=== PATIENT | male | born 1955 | race Hispanic/Latino ===

== ENCOUNTER 2018-02-24 20:23 | Inpatient (IN) | payer OTHER ==
[2018-02-24] MEDS ORDERED: Sodium Chloride 0.9% 1,000 ML IV STA (21:00)
[2018-02-24] MEDS ORDERED: Piperacillin/Tazobact 3.375 GM in Sodium Chloride 0.9% 100 ML IVPB STA (21:01)
[2018-02-24] MEDS ORDERED: Piperacillin/Tazobact 3.375 gm Inj IVPB ONE (21:12)
[2018-02-24] MEDS ORDERED: Vancomycin 1 g Inj ONE (21:13)
--- NOTE | 2018-02-24 21:13 | ED PDOC ---
HPI: Fever Time Seen by Provider: 02/24/18 20:49 Fever Onset Was: 02/22/18 (x2 days) Symptoms Associated With Fever: denies: Vomiting, Cough Additional Comments: Patient is a 62 y/o male who presents to the ED complaining of fever onset x2 days ago associated with chills s/p prostate biopsy (x3 days ago.) Patient is currently on cipro. He denies vomiting, dysuria, or cough. Past Medical History Reviewed: Historical Data, Nursing Documentation, Vital Signs Vital Signs: Last Vital Signs Temp 101.1 F H 02/24/18 20:44 Pulse 98 H 02/24/18 20:44 Resp 18 02/24/18 20:44 BP 132/79 02/24/18 20:44 Pulse Ox 99 02/24/18 20:44 - Medical History PMH: CAD (s/p Stent) - Family History Family History: States: Unknown Family Hx - Allergies Allergies/Adverse Reactions: Allergies Allergy/AdvReac Type Severity Reaction Status Date / Time lisinopril Allergy COUGH Verified 02/24/18 20:44 Review of Systems ROS Statement: Except As Marked, All Systems Reviewed And Found Negative Constitutional: Positive for: Fever, Chills Respiratory: Negative for: Cough Gastrointestinal: Negative for: Vomiting Genitourinary Male: Negative for: Dysuria Physical Exam - Reviewed Nursing Documentation Reviewed: Yes Vital Signs Reviewed: Yes - Physical Exam Appears: Positive for: Well, Non-toxic, No Acute Distress Head Exam: Positive for: ATRAUMATIC, NORMOCEPHALIC Skin: Positive for: Normal Color, Warm, DRY Eye Exam: Positive for: EOMI, Normal appearance, PERRL Cardiovascular/Chest: Positive for: Regular Rate, Rhythm. Negative for: Murmur Respiratory: Positive for: Normal Breath Sounds. Negative for: Respiratory Distress Gastrointestinal/Abdominal: Positive for: Normal Exam, Soft. Negative for: Tenderness Back: Positive for: Normal Inspection. Negative for: L CVA Tenderness, R CVA Tenderness Extremity: Positive for: Normal ROM. Negative for: Pedal Edema, Deformity Neurologic/Psych: Positive for: Alert, Oriented. Negative for: Motor/Sensory Deficits - Laboratory Results Result Diagrams: 02/24/18 21:57 02/24/18 21:57 - ECG O2 Sat by Pulse Oximetry: 99 (RA) Pulse Ox Interpretation: Normal Medical Decision Making Medical Decision Making: Time: 21:00 Initial plan: VBG Shock panel EKG CMP CBC w/ diff CXR IV fluids Vancomycin Zosyn Blood culture Urine Culture UA Scribe Attestation: Documented by Mart Stack acting as a scribe for Maicol Wiley MD Provider Scribe Attestation: All medical record entries made by the Scribe were at my direction and personally dictated by me. I have reviewed the chart and agree that the record accurately reflects my personal performance of the history, physical exam, medical decision making, and the department course for this patient. I have also personally directed, reviewed, and agree with the discharge instructions and disposition. Disposition - Clinical Impression Clinical Impression: Sepsis, Prostatitis - Patient ED Disposition Is Patient to be Admitted: Yes - Disposition Disposition Time: 22:26 Condition: FAIR Forms: SEA (Peruvian) - Pt Status Changed To: Hospital Disposition Of: Inpatient - Admit Certification Admit to Inpatient:: After my assessment, the patient will require hospitalization for at least two midnights. This is because of the severity of symptoms shown, intensity of services needed, and/or the medical risk in this patient being treated as an outpatient. - POA Present On Arrival: None
[2018-02-24 22:00] LABS: BASO % 0.4 % (0.0-2.0); EOS % 0.1 % (0.0-4.0); LYMPH # 0.5 K/uL (1.0-4.3); LYMPH % 5.3 % (20.0-40.0); MEAN CELL VOLUME 90.7 fl (80.0-94.0); MEAN CORPUSCULAR HEMOGLOBIN 30.2 pg (27.0-31.0); MEAN CORPUSCULAR HGB CONC 33.3 g/dL (33.0-37.0); MONO # 0.6 K/uL (0.0-0.8); MONO % 6.4 % (0.0-10.0); NEUT # 8.1 K/uL (1.8-7.0); NEUT % 87.8 % (50.0-75.0); PLATELET COUNT 219 K/uL (130-400); RBC 4.31 Mil/uL (4.40-5.90); RED CELL DISTRIBUTION WIDTH 13.6 % (11.5-14.5); WHITE BLOOD COUNT 9.2 K/uL (4.8-10.8)
[2018-02-24 22:05] LABS: VENOUS BLOOD GAS BASE EXCESS 2.7 mmol/L (0.0-2.0); VENOUS BLOOD GAS PCO2 36 mmHg (40-60); VENOUS BLOOD GAS PO2 32 mm/Hg (30-55); VENOUS BLOOD PH 7.47 (7.32-7.43)
[2018-02-24 22:10] LABS: ALB/GLOB RATIO 1.2 (1.0-2.1); ALBUMIN 3.9 g/dL (3.5-5.0); ALT/SGPT 17 U/L (21-72); AST/SGOT 17 U/L (17-59); BLOOD UREA NITROGEN 15 mg/dl (9-20); CALCIUM 9.1 mg/dL (8.4-10.2); GFR NON-AFRICAN AMERICAN > 60
[2018-02-24 22:48] LABS: BANDS 3 % (0-2); LYMPHOCYTE 7 % (20-50); MONOCYTE 8 % (0-10); NEUTROPHIL 81 % (42-75); REACTIVE LYMPHOCYTES 1 % (0-0); TOTAL CELLS COUNTED 100
[2018-02-24 22:49] LABS: ANISOCYTOSIS SLIGHT; HYPOCHROMIC SLIGHT; PLATELET ESTIMATE NORMAL (NORMAL); TOXIC GRANULATION PRESENT
[2018-02-24 23:02] LABS: URINE AMORPHOUS SEDIMENT RARE /ul (<OCC); URINE BACTERIA MANY (<OCC); URINE BILIRUBIN NEGATIVE (NEGATIVE); URINE BLOOD MODERATE (NEGATIVE); URINE CLARITY CLOUDY (Clear); URINE COLOR YELLOW (YELLOW); URINE GLUCOSE (UA) NEG (Normal); URINE LEUKOCYTE ESTERASE MOD Leu/uL (Negative); URINE PROTEIN 30 mg/dL (NEGATIVE)
[2018-02-25] MEDS ORDERED: DiphenhydrAMINE 12.5 mg/5 ml LIQ UD (5 ml) PO ONE (01:29)
[2018-02-25] MEDS ORDERED: Piperacillin/Tazobact 3.375 GM in Sodium Chloride 0.9% 100 ML IVPB SCH (09:00)
--- NOTE | 2018-02-25 09:35 | RAD ---
Date of service: 02/24/2018 HISTORY: Sepsis COMPARISON: No prior. TECHNIQUE: Chest PA and lateral FINDINGS: LUNGS: No active pulmonary disease. PLEURA: No significant pleural effusion identified. No pneumothorax apparent. CARDIOVASCULAR: No aortic atherosclerotic calcification present. Normal cardiac size. No pulmonary vascular congestion. OSSEOUS STRUCTURES: No significant abnormalities. VISUALIZED UPPER ABDOMEN: Normal. OTHER FINDINGS: None. IMPRESSION: No acute cardiopulmonary disease appreciated.
[2018-02-25] MEDS: Sodium Chloride 0.9% 1,000 ML IV SCH ×2 (09:43→18:20)
--- NOTE | 2018-02-25 12:52 | CARD ---
APPROVED REPORT Date of service: 02/24/2018 EKG Measurement Heart [id number] <Conclusion> Normal sinus rhythm Normal ECG
[2018-02-25] MEDS ORDERED: Alum-Mag Hydrox-Simethicone Susp (30 mL) PO PRN (13:42)
--- NOTE | 2018-02-25 14:13 | CP.PCM.CON ---
History of Present Illness - History of Present Illness History of Present Illness: 62 y/o male who presents to the ED complaining of fever onset x2 days ago associated with chills s/p prostate biopsy (x3 days ago.) Patient is currently on cipro. He denies vomiting, dysuria, or cough. ADMITTED WITH [facility] INFE[facility] PENDING CULTURES - Medical HistoryPast Medical History Reviewed: Historical Data, Nursing Documentation, Vital Signs Vi PMH: CAD (s/p Stent) Review of Systems - Review of Systems All systems: reviewed and no additional remarkable complaints except - Constitutional Constitutional: absent: As Per HPI, Anorexia, Chills, Daytime Sleepiness, Excessive Sweating, Fatigue, Fever, Frequent Falls, Headache, Increased Appet ite, Lethargy, Malaise, Night Sweats, Snoring, Sleep Apnea, Weight Gain, Weight Loss, Weakness, Other - EENT Eyes: absent: As Per HPI, Blind Spots, Blurred Vision, Change in Vision, Decreased Night Vision, Diplopia, Discharge, Dry Eye, Exophthalmos, Floaters, I rritation, Itchy Eyes, Loss of Peripheral Vision, Pain, Photophobia, Requires Corrective Lenses, Sees Flashes, Spots in Vision, Tunnel Vision, Other Visual Disturbances, Loss of Vision, Other Ears: absent: As Per HPI, Decreased Hearing, Ear Discharge, Ear Pain, Tinnitus, Abnormal Hearing, Disequilibrium, Dizziness, Other Nose/Mouth/Throat: absent: As Per HPI, Epistaxis, Nasal Congestion, Nasal Discharge, Nasal Obstruction, Nasal Trauma, Nose Pain, Post Nasal Drip, Sinus Pain, Sinus Pressure, Bleeding Gums, Change in Voice, Dental Pain, Dry Mouth, Dysphagia, Halitosis, Hoarsness, Lip Swelling, Mouth Lesions, Mouth Pain, Odynophagia, Sore Throat, Throat Swelling, Tongue Swelling, Facial Pain, Neck Pain, Neck Mass, Other - Cardiovascular Cardiovascular: absent: As Per HPI, Acrocyanosis, Chest Pain, Chest Pain at Rest, Chest Pain with Activity, Claudication, Diaphoresis, Dyspnea, Dyspnea on Exertion, Edema, Irregular Heart Rhythm, Pain Radiating to Arm/Neck/Jaw, Leg Edema, Leg Ulcers, Lightheadedness, Orthopnea, Palpitations, Paroxysmal Nocturnal Dyspnea, Pedal Edema, Radiating Pain, Rapid Heart Rate, Slow Heart Rate, Syncope, Other - Respiratory Respiratory: absent: As Per HPI, Cough, Dyspnea, Hemoptysis, Dyspnea on Exertion, Wheezing, Snoring, Stridor, Pain on Inspiration, Chest Congestion, Excessive Mucous Production, Change in Mucous Color, Pain with Coughing, Other - Gastrointestinal Gastrointestinal: absent: As Per HPI, Abdominal Pain, Belching, Bloating, Change in Bowel Habits, Change in Stool Character, Coffee Ground Emesis, Constipation, Cramping, Diarrhea, Dyspepsia, Dysphagia, Early Satiety, Excessive Flatus, Fecal Incontinence, Heartburn, Hematemesis, Hematochezia, Loose Stools, Melena, Nausea, Odynophagia, Temesmus, Vomiting, Other - Genitourinary Genitourinary: As Per HPI - Musculoskeletal Musculoskeletal: absent: As Per HPI, Abnormal Gait, Arthralgias, Atrophy, Back Pain, Deformity, Joint Swelling, Limited Range of Motion, Loss of Height, Muscle Cramps, Muscle Weakness, Myalgias, Neck Pain, Numbness, Radiating Pain into Limb, Stiffness, Tingling, Other - Integumentary Integumentary: absent: As Per HPI, Acne, Alopecia, Bleeding Lesions, Change in Hair, Change in Nails, Change in Pigmentation, Changing Lesions, Dry Skin, Erythema, Furuncle, Hirsutism, Lesions, New Lesions, Non-Healing Lesions, Photosensitivity, Pruritus, Rash, Skin Pain, Skin Ulcer, Sores, Striae, Swelling, Unusual Bruising, Wounds, Jaundice, Other - Neurological Neurological: absent: As Per HPI, Abnormal Gait, Abnormal Hearing, Abnormal Movements, Abnormal Speech, Behavioral Changes, Burning Sensations, Confusion, Convulsions, Disequilibrium, Dizziness, Numbness, Focal Weakness, Frequent Falls, Headaches, Lack of Coordination, Loss of Vision, Memory Loss, Paresthesias, Radicular Pain, Restless Legs, Sensory Deficit, Syncope, Tingling, Tremor, Vertigo, Weakness, Other Visual Disturbances, Other - Psychiatric Psychiatric: absent: As Per HPI, Abnormal Sleep Pattern, Anhedonia, Anxiety, Auditory Hallucinations, Behavioral Changes, Change in Appetite, Change in Libido, Confusion, Depression, Difficulty Concentrating, Hallucinations, Homicidal Ideation, Hopelessness, Irritability, Memory Loss, Mood Swings, Panic Attacks, Paranoia, Suicidal Ideation, Visual Hallucinations, Tactile Hallucinations, Other - Endocrine Endocrine: absent: As Per HPI, Change in Body Appearance, Change in Libido, Cold Intolorance, Deepening of Voice, Excessive Sweating, Fatigue, Flushing, Heat Intolorance, Increase in Ring/Shoe/Hat Size, Palpitations, Polydipsia, Polyphagia, Polyuria, Other - Hematologic/Lymphatic Hematologic: absent: As Per HPI, Easy Bleeding, Easy Bruising, Lymphadenopathy, Other Past Patient History - Past Social History Smoking Status: Former Smoker - CARDIAC Hx Cardiac Disorders: Yes Hx Heart Attack: Yes (8 yrs ago stent placement) Hx Hypercholesterolemia: Yes Hx Hypertension: Yes - PULMONARY Hx Respiratory Disorders: No - MUSCULOSKELETAL/RHEUMATOLOGICAL Hx Falls: No - GENITOURINARY/GYNECOLOGICAL Hx Prostate Problems: Yes - PSYCHIATRIC Hx Substance Use: No - SURGICAL HISTORY Hx Surgeries: Yes Hx Herniorrhaphy: Yes - ANESTHESIA Hx Anesthesia: Yes Hx Anesthesia Reactions: No Hx Malignant Hyperthermia: No Meds Home Medications: Home Medication List Medication Instructions Recorded Confirmed Type Cephalexin [Keflex] 1,000 mg PO TID 14 Days #42 capsule 02/27/18 Rx Allergies/Adverse Reactions: Allergies Allergy/AdvReac Type Severity Reaction Status Date / Time lisinopril Allergy COUGH Verified 02/24/18 20:44 - Medications Medications: Current Medications Al Hydrox/Mg Hydrox/Simethicone (Maalox Plus 30 Ml) 30 ml PO Q6 PRN PRN Reason: Indigestion / Heartburn Atorvastatin Calcium (Lipitor) 80 mg PO DAILY [facility] Last Admin: 02/25/18 09:11 Dose: 80 mg Clopidogrel Bisulfate (Plavix) 75 mg PO DAILY [facility] Last Admin: 02/25/18 09:11 Dose: 75 mg Escitalopram Oxalate (Lexapro) 5 mg PO DAILY [facility] Last Admin: 02/25/18 09:10 Dose: 5 mg Sodium Chloride (Sodium Chloride 0.9%) 1,000 mls @ 100 mls/hr IV .Q10H [facility] Stop: 02/26/18 06:45 Last Admin: 02/25/18 09:43 Dose: 100 mls/hr Piperacillin Sod/Tazobactam (Sod 3.375 gm/ Sodium Chloride) 100 mls @ 100 mls/hr IVPB Q12 [facility]; Protocol Last Admin: 02/25/18 10:23 Dose: 100 mls/hr Vancomycin HCl 1 gm/ Sodium (Chloride) 250 mls @ 166.667 mls/hr IVPB DAILY@1999 [facility] Losartan Potassium (Cozaar) 50 mg PO DAILY [facility] Last Admin: 02/25/18 09:09 Dose: 50 mg Tamsulosin HCl (Flomax) 0.4 mg PO DAILY [facility] Last Admin: 02/25/18 09:10 Dose: 0.4 mg Physical Exam - Constitutional Appears: Non-toxic, Chronically Ill - Head Exam Head Exam: NORMOCEPHALIC - Eye Exam Eye Exam: absent: Scleral icterus - ENT Exam ENT Exam: Mucous Membranes Dry, Normal External Ear Exam - Neck Exam Neck exam: Negative for: Lymphadenopathy - Respiratory Exam Respiratory Exam: Decreased Breath Sounds, Clear to Auscultation Bilateral - Cardiovascular Exam Cardiovascular Exam: REGULAR RHYTHM, +S1, +S2 - GI/Abdominal Exam GI & Abdominal Exam: Diminished Bowel Sounds, Soft. absent: Tenderness - Rectal Exam Rectal Exam: Deferred - Exam Exam: NORMAL INSPECTION - Back Exam Back exam: absent: CVA tenderness (L), CVA tenderness (R), paraspinal tenderness - Neurological Exam Neurological exam: Alert, CN II-XII Intact, Oriented x3, Reflexes Normal - Psychiatric Exam Psychiatric exam: Normal Mood - Skin Skin Exam: Dry Results - Vital Signs Recent Vital Signs: Last Vital Signs Temp 98.1 F 02/25/18 12:00 Pulse 73 02/25/18 12:00 Resp 18 02/25/18 12:00 BP 130/68 02/25/18 12:00 Pulse Ox 98 02/25/18 12:00 - Labs Result Diagrams: 02/26/18 10:20 02/26/18 10:20 Labs: Laboratory Results - last 24 hr 02/24/18 02/24/18 02/24/18 21:57 21:57 22:02 WBC 9.2 RBC 4.31 L Hgb 13.0 Hct 39.1 MCV 90.7 MCH 30.2 MCHC 33.3 RDW 13.6 Plt Count 219 MPV 8.0 Neut % (Auto) 87.8 H Lymph % (Auto) 5.3 L [place] % (Auto) 6.4 Eos % (Auto) 0.1 Baso % (Auto) 0.4 Neut # (Auto) 8.1 H Lymph # (Auto) 0.5 L [place] # (Auto) 0.6 Eos # (Auto) 0.0 Baso # (Auto) 0.0 Neutrophils % (Manual) 81 H Band Neutrophils % 3 H Lymphocytes % (Manual) 7 L Reactive Lymphs % 1 H Monocytes % (Manual) 8 Toxic Granulation Present Platelet Estimate Normal Hypochromasia (manual) Slight Anisocytosis (manual) Slight pO2 32 VBG pH 7.47 H VBG pCO2 36 L VBG HCO3 26.2 VBG Total CO2 27.3 VBG O2 Sat (Calc) 71.6 H VBG Base Excess 2.7 H VBG Potassium 4.1 Glucose 129 H Lactate 1.7 FiO2 21.0 Sodium 137 134.0 Potassium 4.1 Chloride 101 101.0 Carbon Dioxide 25 Anion Gap 15 BUN 15 Creatinine 0.9 Est GFR ( Amer) > 60 Est GFR (Non-Af Amer) > 60 Random Glucose 119 H Calcium 9.1 Total Bilirubin 0.7 AST 17 ALT 17 L Alkaline Phosphatase 50 Total Protein 7.2 Albumin 3.9 Globulin 3.3 Albumin/Globulin Ratio 1.2 Venous Blood Potassium 4.1 Urine Color Urine Clarity Urine pH Ur Specific [place] Urine Protein Urine Glucose (UA) Urine Ketones Urine Blood Urine Nitrate Urine Bilirubin Urine Urobilinogen Ur Leukocyte Esterase Urine RBC (Auto) Urine Microscopic WBC Amorphous Sediment Urine Bacteria 02/24/18 22:51 WBC RBC Hgb Hct MCV MCH MCHC RDW Plt Count MPV Neut % (Auto) Lymph % (Auto) [place] % (Auto) Eos % (Auto) Baso % (Auto) Neut # (Auto) Lymph # (Auto) [place] # (Auto) Eos # (Auto) Baso # (Auto) Neutrophils % (Manual) Band Neutrophils % Lymphocytes % (Manual) Reactive Lymphs % Monocytes % (Manual) Toxic Granulation Platelet Estimate Hypochromasia (manual) Anisocytosis (manual) pO2 VBG pH VBG pCO2 VBG HCO3 VBG Total CO2 VBG O2 Sat (Calc) VBG Base Excess VBG Potassium Glucose Lactate FiO2 Sodium Potassium Chloride Carbon Dioxide Anion Gap BUN Creatinine Est GFR ( Amer) Est GFR (Non-Af Amer) Random Glucose Calcium Total Bilirubin AST ALT Alkaline Phosphatase Total Protein Albumin Globulin Albumin/Globulin Ratio Venous Blood Potassium Urine Color Yellow Urine Clarity Cloudy Urine pH 6.0 Ur Specific [place] 1.021 Urine Protein 30 Urine Glucose (UA) Neg Urine Ketones Negative Urine Blood Moderate Urine Nitrate Positive H Urine Bilirubin Negative Urine Urobilinogen 2.0 Ur Leukocyte Esterase Mod Urine RBC (Auto) 128 H Urine Microscopic WBC 139 H Amorphous Sediment Rare H Urine Bacteria Many H Assessment & Plan (1) UTI (urinary tract infection) Status: Acute (2) Prostatitis Status: Acute (3) Sepsis Status: Acute - Assessment and Plan (Free Text) Assessment: await blood culture report cont empiric Merrem follwo up eval
--- NOTE | 2018-02-25 15:36 | CP.PCM.HP ---
History of Present Illness - History of Present Illness History of Present Illness: 62 y/o male who presented to the ED complaining of fever that began 2 days ago. Pt had a prostate biopsy 3 days ago. Pt currently taking Ciprofloxacin for possible prostatitis. Pt denies chest pain, SOB, dysuria, penile discharge or ra sh. --Today, pt was seen and examined by bedside with Dr Gr. Pt was resting on bed, complained of feeling chills and generalized weakness. Pt described he is feeling like he has fever again. --Later today, pt was evaluated and examined by Urologist, Dr Cook, who stated that rectal exam was unremarkable, if patient was to discharged to continue with PO Ciprofloxacin or Augmentin depending on Urine Culture results. --Pt was re-evaluated again by gag writer at 15:00, pt still had chills and generalized weakness, poor appetite and not eating much. Pt reports having trouble initiating sleep for a few years, has requested something to sleep. Pt was given Benadryl last night; however, pt believes it aggravated the chills. Present on Admission - Present on Admission Any Indicators Present on Admission: No Review of Systems - Constitutional Constitutional: Chills, Fever, Lethargy - EENT Eyes: absent: Change in Vision Nose/Mouth/Throat: absent: Nasal Congestion, Mouth Lesions, Sore Throat - Cardiovascular Cardiovascular: absent: Chest Pain, Dyspnea, Palpitations - Respiratory Respiratory: absent: Cough, Dyspnea, Hemoptysis - Gastrointestinal Gastrointestinal: absent: Abdominal Pain, Nausea, Vomiting - Genitourinary Genitourinary: absent: Dysuria, Flank Pain Past Patient History - Past Social History Smoking Status: Former Smoker - CARDIAC Hx Cardiac Disorders: Yes Hx Heart Attack: Yes (8 yrs ago stent placement) Hx Hypercholesterolemia: Yes Hx Hypertension: Yes - PULMONARY Hx Respiratory Disorders: No - MUSCULOSKELETAL/RHEUMATOLOGICAL Hx Falls: No - GENITOURINARY/GYNECOLOGICAL Hx Prostate Problems: Yes - PSYCHIATRIC Hx Substance Use: No - SURGICAL HISTORY Hx Surgeries: Yes Hx Herniorrhaphy: Yes - ANESTHESIA Hx Anesthesia: Yes Hx Anesthesia Reactions: No Hx Malignant Hyperthermia: No Meds Allergies/Adverse Reactions: Allergies Allergy/AdvReac Type Severity Reaction Status Date / Time lisinopril Allergy COUGH Verified 02/24/18 20:44 Physical Exam - Constitutional Appears: No Acute Distress - Head Exam Head Exam: ATRAUMATIC, NORMAL INSPECTION - Eye Exam Eye Exam: EOMI - ENT Exam ENT Exam: Mucous Membranes Dry, Normal Oropharynx - Neck Exam Neck exam: Positive for: Full Rom, Normal Inspection. Negative for: Meningismus - Respiratory Exam Respiratory Exam: NORMAL BREATHING PATTERN. absent: Rales, Rhonchi, Wheezes - Cardiovascular Exam Cardiovascular Exam: REGULAR RHYTHM, +S1, +S2 - GI/Abdominal Exam GI & Abdominal Exam: Normal Bowel Sounds, Soft. absent: Distended, Guarding, Rebound, Tenderness - Extremities Exam Extremities exam: Positive for: normal inspection. Negative for: calf tenderness, pedal edema - Back Exam Back exam: absent: CVA tenderness (L), CVA tenderness (R) - Neurological Exam Neurological exam: Alert, Oriented x3 Results - Vital Signs Recent Vital Signs: Last Vital Signs Temp 98.1 F 02/25/18 12:00 Pulse 73 02/25/18 12:00 Resp 18 02/25/18 12:00 BP 130/68 02/25/18 12:00 Pulse Ox 98 02/25/18 12:00 - Labs Result Diagrams: 02/24/18 21:57 02/24/18 21:57 Labs: Laboratory Results - last 24 hr 02/24/18 02/24/18 02/24/18 21:57 21:57 22:02 WBC 9.2 RBC 4.31 L Hgb 13.0 Hct 39.1 MCV 90.7 MCH 30.2 MCHC 33.3 RDW 13.6 Plt Count 219 MPV 8.0 Neut % (Auto) 87.8 H Lymph % (Auto) 5.3 L [place] % (Auto) 6.4 Eos % (Auto) 0.1 Baso % (Auto) 0.4 Neut # (Auto) 8.1 H Lymph # (Auto) 0.5 L [place] # (Auto) 0.6 Eos # (Auto) 0.0 Baso # (Auto) 0.0 Neutrophils % (Manual) 81 H Band Neutrophils % 3 H Lymphocytes % (Manual) 7 L Reactive Lymphs % 1 H Monocytes % (Manual) 8 Toxic Granulation Present Platelet Estimate Normal Hypochromasia (manual) Slight Anisocytosis (manual) Slight pO2 32 VBG pH 7.47 H VBG pCO2 36 L VBG HCO3 26.2 VBG Total CO2 27.3 VBG O2 Sat (Calc) 71.6 H VBG Base Excess 2.7 H VBG Potassium 4.1 Glucose 129 H Lactate 1.7 FiO2 21.0 Sodium 137 134.0 Potassium 4.1 Chloride 101 101.0 Carbon Dioxide 25 Anion Gap 15 BUN 15 Creatinine 0.9 Est GFR ( Amer) > 60 Est GFR (Non-Af Amer) > 60 Random Glucose 119 H Calcium 9.1 Total Bilirubin 0.7 AST 17 ALT 17 L Alkaline Phosphatase 50 Total Protein 7.2 Albumin 3.9 Globulin 3.3 Albumin/Globulin Ratio 1.2 Venous Blood Potassium 4.1 Urine Color Urine Clarity Urine pH Ur Specific [place] Urine Protein Urine Glucose (UA) Urine Ketones Urine Blood Urine Nitrate Urine Bilirubin Urine Urobilinogen Ur Leukocyte Esterase Urine RBC (Auto) Urine Microscopic WBC Amorphous Sediment Urine Bacteria 02/24/18 22:51 WBC RBC Hgb Hct MCV MCH MCHC RDW Plt Count MPV Neut % (Auto) Lymph % (Auto) [place] % (Auto) Eos % (Auto) Baso % (Auto) Neut # (Auto) Lymph # (Auto) [place] # (Auto) Eos # (Auto) Baso # (Auto) Neutrophils % (Manual) Band Neutrophils % Lymphocytes % (Manual) Reactive Lymphs % Monocytes % (Manual) Toxic Granulation Platelet Estimate Hypochromasia (manual) Anisocytosis (manual) pO2 VBG pH VBG pCO2 VBG HCO3 VBG Total CO2 VBG O2 Sat (Calc) VBG Base Excess VBG Potassium Glucose Lactate FiO2 Sodium Potassium Chloride Carbon Dioxide Anion Gap BUN Creatinine Est GFR ( Amer) Est GFR (Non-Af Amer) Random Glucose Calcium Total Bilirubin AST ALT Alkaline Phosphatase Total Protein Albumin Globulin Albumin/Globulin Ratio Venous Blood Potassium Urine Color Yellow Urine Clarity Cloudy Urine pH 6.0 Ur Specific [place] 1.021 Urine Protein 30 Urine Glucose (UA) Neg Urine Ketones Negative Urine Blood Moderate Urine Nitrate Positive H Urine Bilirubin Negative Urine Urobilinogen 2.0 Ur Leukocyte Esterase Mod Urine RBC (Auto) 128 H Urine Microscopic WBC 139 H Amorphous Sediment Rare H Urine Bacteria Many H Assessment & Plan - Assessment and Plan (Free Text) Assessment: 62 y/o M with a PMHx of CAD was admitted for evaluation of fever and ?prostatis. PLAN: --Afebrile since this morning --ID consult ordered, Dr Olivera. F/U recommendations. --Urology on boards. Recommendations reviewed, --F/U Blood Cx and Urine Cx. --COntinue with IV Vancomycin --IV Meropenem as per ID --Acetaminophen Q6H scheduled --Zolpidem 5mg QHS since Hx of poor sleep and insomnia. --Continue management as ordered. Case discussed with Dr Gr. Osmin, PGY-2. - Date & Time Date: 02/25/18 Time: 11:11
[2018-02-25] MEDS: Meropenem 1 GM in Sodium Chloride 0.9% 100 ML IVPB SCH (16:09)
[2018-02-25] MEDS ORDERED: Vancomycin 1 g Inj IVPB SCH (20:00)
[2018-02-26] MEDS: Meropenem 1 GM in Sodium Chloride 0.9% 100 ML IVPB SCH ×3 (01:39→17:08)
--- NOTE | 2018-02-26 02:30 | CON ---
DATE: 02/25/2018 TIME OF CONSULTATION: Roughly 2:30 p.m. BRIEF HISTORY: The patient is a 62-year-old white male status post transrectal prostate needle biopsy done by Dr. Ryland De Anda in [place], [place], on Wednesday prior to this admission. The patient developed a temperature of 103 post biopsy and came to [facility] Emergency Room, where his temperature was over 101. The patient was started on IV Zosyn and vancomycin for treatment of urosepsis post-transrectal prostate needle biopsy. The patient had the biopsy done for an elevated PSA of 6. Result is still pending. The patient currently voids with his usual normal urinary stream. No dysuria, gross hematuria, renal colic or abdominal pain. No history of any kidney disease or kidney stones. No history of any sexually transmitted diseases. No history of prostate cancer or family history of prostate cancer. He stopped smoking 3 years ago and did smoke one pack per day for many-many years. He is only a social drinker. He is currently visiting his daughter who lives in [place]. ALLERGIES: NO KNOWN ALLERGIES TO ANY MEDICATIONS. PHYSICAL EXAMINATION: GENERAL: The patient is a well-developed, well-nourished white male. He is alert. He is oriented. HEENT: Grossly within normal limits. NECK: Supple. Thyroid nonpalpable. ABDOMEN: Soft, nondistended, nontender. No CVA tenderness. No suprapubic tenderness. GENITALIA: The patient is circumcised with normal glans and meatus without any rashes or lesions visualized. Testes are down bilaterally, nontender without any masses. RECTAL: Showed normal rectal tone without fluctuance or masses. Prostate is slightly enlarged, smooth, symmetrical, minimally tender and slightly indurated in the right to mid portion of the mid prostate gland. He has full range of motion of both upper and lower extremities. No leg edema or calf tenderness. LABORATORY DATA: His laboratory evaluation on 02/24/2018 showed a CBC with a WBC count of 9.2, hemoglobin of 13, hematocrit of 39.1 and platelet count of 219,000. His chem profile showed a sodium of 137, potassium 4.1, chloride 101, CO2 of 25, BUN and creatinine of 15 and 0.9 respectively with a GFR of greater than 60. Random glucose is 119. Calcium 9.1, total bilirubin 0.7, AST 17, ALT 17, alk phosphatase 50. Urinalysis showed the color was yellow. The clarity was cloudy. PH 6. Specific gravity 1.021. Protein 30. Glucose negative. Ketones negative. Moderate blood. Nitrite positive. Bilirubin negative. Urine urobilinogen 2. Moderate leukocyte esterase. Rbc's 128, 139 wbc's and many bacteria per high power field, indicating urinary tract infection and most likely urosepsis. IMPRESSION: Diagnostic impression for this patient is urosepsis, status post transrectal prostate needle biopsy, done in [place], [place], on Wednesday prior to this admission. PLAN: Maintain the patient on IV antibiotics for at least another 24 hours and then the patient can eventually be discharged home on most likely Augmentin 875/125 mg b.i.d. for two weeks or Cipro 500 mg b.i.d. also for two weeks pending the urine culture results. August Cook MD
[2018-02-26] MEDS: Sodium Chloride 0.9% 1,000 ML IV SCH ×2 (03:47→06:26)
[2018-02-26 11:01] LABS: HEMOGLOBIN 12.3 g/dL (12.0-18.0); MEAN CELL VOLUME 89.9 fl (80.0-94.0); MEAN CORPUSCULAR HEMOGLOBIN 30.6 pg (27.0-31.0); RBC 4.02 Mil/uL (4.40-5.90); RED CELL DISTRIBUTION WIDTH 13.7 % (11.5-14.5); WHITE BLOOD COUNT 4.7 K/uL (4.8-10.8)
[2018-02-26 12:02] LABS: BLOOD UREA NITROGEN 9 mg/dl (9-20); GFR NON-AFRICAN AMERICAN > 60
--- NOTE | 2018-02-26 18:55 | CP.PCM.PN ---
Subjective - Date & Time of Evaluation Date of Evaluation: 02/26/18 Time of Evaluation: 10:00 - Subjective Subjective: patient seen and examined at bedside. no acute events overnight. still with dysuria. Objective - Vital Signs/Intake and Output Vital Signs (last 24 hours): Temp Pulse Resp BP Pulse Ox 97.5 F L 59 L 20 126/74 100 02/26/18 15:53 02/26/18 15:53 02/26/18 15:53 02/26/18 15:53 02/26/18 15:53 - Medications Medications: Current Medications Acetaminophen (Tylenol 325mg Tab) 650 mg PO Q6 [facility] Last Admin: 02/26/18 17:07 Dose: 650 mg Al Hydrox/Mg Hydrox/Simethicone (Maalox Plus 30 Ml) 30 ml PO Q6 PRN PRN Reason: Indigestion / Heartburn Atorvastatin Calcium (Lipitor) 80 mg PO DAILY [facility] Last Admin: 02/26/18 09:34 Dose: 80 mg Clopidogrel Bisulfate (Plavix) 75 mg PO DAILY [facility] Last Admin: 02/26/18 09:35 Dose: 75 mg Escitalopram Oxalate (Lexapro) 5 mg PO DAILY [facility] Last Admin: 02/26/18 09:35 Dose: 5 mg Vancomycin HCl 1 gm/ Sodium (Chloride) 250 mls @ 166.667 mls/hr IVPB DAILY@2000 [facility] Last Admin: 02/25/18 20:31 Dose: 166.667 mls/hr Meropenem 1 gm/ Sodium (Chloride) 100 mls @ 100 mls/hr IVPB Q8 [facility]; Protocol Last Admin: 02/26/18 17:08 Dose: 100 mls/hr Losartan Potassium (Cozaar) 50 mg PO DAILY [facility] Last Admin: 02/26/18 09:35 Dose: 50 mg Tamsulosin HCl (Flomax) 0.4 mg PO DAILY [facility] Last Admin: 02/26/18 09:35 Dose: 0.4 mg Zolpidem Tartrate (Ambien) 5 mg PO HS [facility] Last Admin: 02/25/18 21:30 Dose: 5 mg - Labs Labs: 02/26/18 10:20 02/26/18 10:20 - Additional Findings Additional findings: - Constitutional Appears: No Acute Distress - Head Exam Head Exam: ATRAUMATIC, NORMAL INSPECTION - Respiratory Exam Respiratory Exam: NORMAL BREATHING PATTERN. absent: Rales, Rhonchi, Wheezes - Cardiovascular Exam Cardiovascular Exam: REGULAR RHYTHM, +S1, +S2 - GI/Abdominal Exam GI & Abdominal Exam: Normal Bowel Sounds, Soft. absent: Distended, Guarding, Rebound, Tenderness - Extremities Exam Extremities exam: Positive for: normal inspection. Negative for: calf tenderness, pedal edema - Neurological Exam Neurological exam: Alert, Oriented x3 Assessment and Plan - Assessment and Plan (Free Text) Assessment: 62 y/o M with a PMHx of CAD was admitted for evaluation of fever and ?prostatis s/p prostate biopsy. PLAN: --Afebrile --ID consult appreciated, Dr Olivera. F/U recommendations. --Urology consult appreciated. Recommendations reviewed --F/U Blood Cx and Urine Cx. --Cont IV abx as per ID --dispo planning pending urine cx --Continue management as ordered.
[2018-02-27] MEDS: Meropenem 1 GM in Sodium Chloride 0.9% 100 ML IVPB SCH ×3 (00:24→11:06)
[2018-02-27 08:38] VITALS: RESP 20
--- NOTE | 2018-02-27 12:38 | CP.PCM.PN ---
Subjective - Date & Time of Evaluation Date of Evaluation: 02/27/18 Time of Evaluation: 08:00 - Subjective Subjective: feels better blood c/s neg d/c on po rx to follow with Objective - Vital Signs/Intake and Output Vital Signs (last 24 hours): Temp Pulse Resp BP Pulse Ox 98.1 F 86 20 176/106 H 97 02/27/18 08:38 02/27/18 08:58 02/27/18 08:38 02/27/18 08:58 02/27/18 08:38 - Medications Medications: Current Medications Acetaminophen (Tylenol 325mg Tab) 650 mg PO Q6 [facility] Last Admin: 02/27/18 08:59 Dose: 650 mg Al Hydrox/Mg Hydrox/Simethicone (Maalox Plus 30 Ml) 30 ml PO Q6 PRN PRN Reason: Indigestion / Heartburn Atorvastatin Calcium (Lipitor) 80 mg PO DAILY [facility] Last Admin: 02/27/18 08:58 Dose: 80 mg Clopidogrel Bisulfate (Plavix) 75 mg PO DAILY [facility] Last Admin: 02/27/18 08:58 Dose: 75 mg Escitalopram Oxalate (Lexapro) 5 mg PO DAILY [facility] Last Admin: 02/27/18 08:57 Dose: 5 mg Vancomycin HCl 1 gm/ Sodium (Chloride) 250 mls @ 166.667 mls/hr IVPB DAILY@2000 [facility] Last Admin: 02/26/18 21:26 Dose: 166.667 mls/hr Meropenem 1 gm/ Sodium (Chloride) 100 mls @ 100 mls/hr IVPB Q8 [facility]; Protocol Last Admin: 02/27/18 11:06 Dose: 100 mls/hr Losartan Potassium (Cozaar) 50 mg PO DAILY [facility] Last Admin: 02/27/18 08:58 Dose: 50 mg Tamsulosin HCl (Flomax) 0.4 mg PO DAILY [facility] Last Admin: 02/27/18 08:58 Dose: 0.4 mg Zolpidem Tartrate (Ambien) 5 mg PO [facility] Last Admin: 02/26/18 21:25 Dose: 5 mg - Labs Labs: 02/26/18 10:20 02/26/18 10:20 - Constitutional Appears: Non-toxic - Head Exam Head Exam: NORMOCEPHALIC - Eye Exam Eye Exam: absent: Scleral icterus - ENT Exam ENT Exam: Mucous Membranes Dry - Neck Exam Neck Exam: absent: Lymphadenopathy - Respiratory Exam Respiratory Exam: Decreased Breath Sounds - Cardiovascular Exam Cardiovascular Exam: REGULAR RHYTHM - GI/Abdominal Exam GI & Abdominal Exam: Distended - Rectal Exam Rectal Exam: Deferred - Exam Exam: NORMAL INSPECTION - Extremities Exam Extremities Exam: absent: Pedal Edema Assessment and Plan - Assessment and Plan (Free Text) Plan: d/c on Keflex 1 g tid x 14 days follow up with
[2018-02-27 12:42] VITALS: BP 129/76; PULSE 68; TEMP 98; O2SAT 98
[2018-02-27 15:01] VITALS: BMI 24.8
--- NOTE | 2018-02-28 19:54 | CP.PCM.DIS ---
Provider - Provider Date of Admission: 02/24/18 22:24 Attending physician: Nghia Gr MD Time Spent in preparation of Discharge (in minutes): 30 Diagnosis - Discharge Diagnosis (1) Prostatitis Status: Acute (2) Sepsis Status: Resolved Hospital Course - Lab Results Lab Results: Micro Results 02/24/18 Unknown Blood-Venous Blood Culture - Preliminary NO GROWTH AFTER 3 DAYS 02/24/18 21:40 Blood-Venous Blood Culture - Preliminary NO GROWTH AFTER 3 DAYS 02/24/18 22:51 Urine,Clean Catch Urine Culture - Final Escherichia Coli Most Recent Lab Values WBC 4.7 K/uL (4.8-10.8) L 02/26/18 10:20 RBC 4.02 Mil/uL (4.40-5.90) L 02/26/18 10:20 Hgb 12.3 g/dL (12.0-18.0) 02/26/18 10:20 Hct 36.1 % (35.0-51.0) 02/26/18 10:20 MCV 89.9 fl (80.0-94.0) 02/26/18 10:20 MCH 30.6 pg (27.0-31.0) 02/26/18 10:20 MCHC 34.0 g/dL (33.0-37.0) 02/26/18 10:20 RDW 13.7 % (11.5-14.5) 02/26/18 10:20 Plt Count 158 K/uL (130-400) 02/26/18 10:20 MPV 8.0 fl (7.2-11.7) 02/24/18 21:57 Neut % (Auto) 87.8 % (50.0-75.0) H 02/24/18 21:57 Lymph % (Auto) 5.3 % (20.0-40.0) L 02/24/18 21:57 [place] % (Auto) 6.4 % (0.0-10.0) 02/24/18 21:57 Eos % (Auto) 0.1 % (0.0-4.0) 02/24/18 21:57 Baso % (Auto) 0.4 % (0.0-2.0) 02/24/18 21:57 Neut # (Auto) 8.1 K/uL (1.8-7.0) H 02/24/18 21:57 Lymph # (Auto) 0.5 K/uL (1.0-4.3) L 02/24/18 21:57 [place] # (Auto) 0.6 K/uL (0.0-0.8) 02/24/18 21:57 Eos # (Auto) 0.0 K/uL (0.0-0.7) 02/24/18 21:57 Baso # (Auto) 0.0 K/uL (0.0-0.2) 02/24/18 21:57 Neutrophils % (Manual) 81 % (42-75) H 02/24/18 21:57 Band Neutrophils % 3 % (0-2) H 02/24/18 21:57 Lymphocytes % (Manual) 7 % (20-50) L 02/24/18 21:57 Reactive Lymphs % 1 % (0-0) H 02/24/18 21:57 Monocytes % (Manual) 8 % (0-10) 02/24/18 21:57 Toxic Granulation Present 02/24/18 21:57 Platelet Estimate Normal (NORMAL) 02/24/18 21:57 Hypochromasia (manual) Slight 02/24/18 21:57 Anisocytosis (manual) Slight 02/24/18 21:57 pO2 32 mm/Hg (30-55) 02/24/18 22:02 VBG pH 7.47 (7.32-7.43) H 02/24/18 22:02 VBG pCO2 36 mmHg (40-60) L 02/24/18 22:02 VBG HCO3 26.2 mmol/L 02/24/18 22:02 VBG Total CO2 27.3 mmol/L (22-28) 02/24/18 22:02 VBG O2 Sat (Calc) 71.6 % (40-65) H 02/24/18 22:02 VBG Base Excess 2.7 mmol/L (0.0-2.0) H 02/24/18 22:02 VBG Potassium 4.1 mmol/L (3.6-5.2) 02/24/18 22:02 Sodium 134.0 mmol/L (132-148) 02/24/18 22:02 Chloride 101.0 mmol/L (98-107) 02/24/18 22:02 Glucose 129 mg/dL (75-110) H 02/24/18 22:02 Lactate 1.7 mmol/L (0.7-2.1) 02/24/18 22:02 FiO2 21.0 % 02/24/18 22:02 Sodium 137 mmol/l (132-148) 02/26/18 10:20 Potassium 3.7 MMOL/L (3.6-5.0) 02/26/18 10:20 Chloride 107 mmol/L (98-107) 02/26/18 10:20 Carbon Dioxide 22 mmol/L (22-30) 02/26/18 10:20 Anion Gap 12 (10-20) 02/26/18 10:20 BUN 9 mg/dl (9-20) 02/26/18 10:20 Creatinine 0.6 mg/dl (0.8-1.5) L 02/26/18 10:20 Est GFR ( Amer) > 60 02/26/18 10:20 Est GFR (Non-Af Amer) > 60 02/26/18 10:20 Random Glucose 162 mg/dL (75-110) H 02/26/18 10:20 Calcium 8.0 mg/dL (8.4-10.2) L 02/26/18 10:20 Total Bilirubin 0.7 mg/dl (0.2-1.3) 02/24/18 21:57 AST 17 U/L (17-59) 02/24/18 21:57 ALT 17 U/L (21-72) L 02/24/18 21:57 Alkaline Phosphatase 50 U/L (38-126) 02/24/18 21:57 Total Protein 7.2 G/DL (6.3-8.2) 02/24/18 21:57 Albumin 3.9 g/dL (3.5-5.0) 02/24/18 21:57 Globulin 3.3 gm/dL (2.2-3.9) 02/24/18 21:57 Albumin/Globulin Ratio 1.2 (1.0-2.1) 02/24/18 21:57 Venous Blood Potassium 4.1 mmol/L (3.6-5.2) 02/24/18 22:02 Urine Color Yellow (YELLOW) 02/24/18 22:51 Urine Clarity Cloudy (Clear) 02/24/18 22:51 Urine pH 6.0 (5.0-8.0) 02/24/18 22:51 Ur Specific [place] 1.021 (1.003-1.030) 02/24/18 22:51 Urine Protein 30 mg/dL (NEGATIVE) 02/24/18 22:51 Urine Glucose (UA) Neg mg/dL (Normal) 02/24/18 22:51 Urine Ketones Negative mg/dL (NEGATIVE) 02/24/18 22:51 Urine Blood Moderate (NEGATIVE) 02/24/18 22:51 Urine Nitrate Positive (NEGATIVE) H 02/24/18 22:51 Urine Bilirubin Negative (NEGATIVE) 02/24/18 22:51 Urine Urobilinogen 2.0 mg/dL (0.2-1.0) 02/24/18 22:51 Ur Leukocyte Esterase Mod [place]/uL (Negative) 02/24/18 22:51 Urine RBC (Auto) 128 /hpf (0-3) H 02/24/18 22:51 Urine Microscopic WBC 139 /hpf (0-5) H 02/24/18 22:51 Amorphous Sediment Rare /ul (<OCC) H 02/24/18 22:51 Urine Bacteria Many (<OCC) H 02/24/18 22:51 - Hospital Course Hospital Course: 62 y/o M with a PMHx of CAD was admitted for sepsis 2ndary to prostatis s/p prostate biopsy. IV antibiotics were given. Urology and ID were consulted. Meggan arias was discharged home in stable condition with PO antibiotics and follow up with urology. Discharge Exam - Head Exam Head Exam: NORMOCEPHALIC - Eye Exam Eye Exam: Normal appearance - Respiratory Exam Respiratory Exam: NORMAL BREATHING PATTERN - Cardiovascular Exam Cardiovascular Exam: +S1, +S2 - GI/Abdominal Exam GI & Abdominal Exam: Unremarkable - Neurological Exam Neurological exam: Alert, Oriented x3 - Psychiatric Exam Psychiatric exam: Normal Affect, Normal Mood - Skin Skin Exam: Normal Color, Warm Discharge Plan - Discharge Medications Prescriptions: Cephalexin [Keflex] 1,000 mg PO TID 14 Days #42 capsule - Follow Up Plan Condition: STABLE Disposition: HOME/ ROUTINE Instructions: Sepsis in Adults, Prostatitis Additional Instructions: follow up with PCP and Urology this week
== END 2018-02-27 14:24 | disposition home or self-care (01) | DRG 872 ==
LOC: H.ER 20:23 → H.ERHOLD 22:24 → H.TEL 02-25 00:42
PROVIDERS: ADMIT Family Medicine; ATTEND Family Medicine
DX: A41.9 Sepsis, unspecified organism (principal); N41.0 Acute prostatitis; E78.00 Pure hypercholesterolemia, unspecified; I10 Essential (primary) hypertension; I25.10 Atherosclerotic heart disease of native coronary artery without angina pectoris; I25.2 Old myocardial infarction; N41.9 Inflammatory disease of prostate, unspecified; Z87.891 Personal history of nicotine dependence; Z95.5 Presence of coronary angioplasty implant and graft